=== PATIENT | male | born 1995 | race Caucasian/White ===

== ENCOUNTER 2017-01-17 11:02 | Emergency (ER) | payer SELFPAY ==
[~2017-01-17] VITALS: Ht 177.8 cm; Wt 88.0 kg
[~2017-01-17 11:02] MED LIST: AMOX500T PO; MMW SSP; Z.0.NO CURRENT MEDS
[2017-01-17 11:05] VITALS: BP 146/72; PULSE 99; RESP 14; TEMP 98.6; O2SAT 100
[2017-01-17 11:12] VITALS: BP 146/72; PULSE 96; RESP 14; O2SAT 100
[2017-01-17] MEDS ORDERED: SODIUM CHLORIDE 0.9% FLUSH 10 ML FLUSH IVF PRN (12:00)
[2017-01-17] MEDS ORDERED: SODIUM CHLOR 0.9% 1000 ML INJ 1,000 ML IV ONE (12:00)
[2017-01-17 12:25] VITALS: O2SAT 100
--- NOTE | 2017-01-17 12:27 | PD ---
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 Father states that he noted that the patient became cyanotic and he started CPR on scene. In the ER, patient is completely awake and oriented. He does not remember episode. He states he has been feeling dizzy and not feeling well before the episode. He denies any vomiting, fevers, or any other issues. He denies any previous history of seizures. Modifying Factors: None Associated Signs & Symptoms: Syncopal episode Risk Factors: None PFSH Past Medical History Medical History: Denies Significant Hx Diabetes: No Diminished Hearing: No Immunizations Current: Yes Social History Alcohol Use: No Tobacco Use: No Substance Use: No Allergies-Medications (Allergen,Severity, Reaction): Coded Allergies: No Known Allergies (Verified , 01/17/17) Reported Meds & Prescriptions Reported Meds & Active Scripts Active No Active Prescriptions or Reported Medications Review of Systems Except as stated in HPI: all other systems reviewed are Neg Physical Exam Narrative GENERAL: Well-developed young white male patient currently in mild distress. Awake and oriented 3. SKIN: Focused skin assessment warm/dry. HEAD: Atraumatic. Normocephalic. EYES: Pupils equal and round. No scleral icterus. No injection or drainage. ENT: No nasal bleeding or discharge. Mucous membranes pink and moist. NECK: Trachea midline. No JVD. CARDIOVASCULAR: Regular rate and rhythm. No murmur appreciated. RESPIRATORY: No accessory muscle use. Clear to auscultation. Breath sounds equal bilaterally. GASTROINTESTINAL: Abdomen soft, non-tender, nondistended. Hepatic and splenic margins not palpable. MUSCULOSKELETAL: No obvious deformities. No clubbing. No cyanosis. No edema. NEUROLOGICAL: Awake and alert. No obvious cranial nerve deficits. Motor grossly within normal limits. Normal speech. PSYCHIATRIC: Appropriate mood and affect; insight and judgment normal. Data Data Last Documented VS Vital Signs Date Time Temp Pulse Resp B/P Pulse Ox O2 Delivery O2 Flow Rate FiO2 01/17/17 12:25 100 Nasal Cannula 2 01/17/17 11:12 96 14 01/17/17 11:05 98.6 Orders Complete Blood Count With Diff (01/17/17 11:51) Drug Screen, Random Urine (01/17/17 11:51) Electrocardiogram (01/17/17 ) Blood Glucose (01/17/17 11:51) Ecg Monitoring (01/17/17 11:51) Iv Access Insert/Monitor (01/17/17 11:51) Oximetry (01/17/17 11:51) Comprehensive Metabolic Panel (01/17/17 11:51) Sodium Chloride 0.9% Flush (Ns Flush) (01/17/17 12:00) Sodium Chlor 0.9% 1000 Ml Inj (Ns 1000 M (01/17/17 12:00) Potassium, Serum (K) (01/17/17 13:48) Chest, Single Ap (01/17/17 13:49) Ct Brain W/O Iv Contrast(Rout) (01/17/17 13:49) Labs Laboratory Tests Test 01/17/17 01/17/17 01/17/17:17 12:00 13:40 White Blood Count 7.8 TH/MM3 Red Blood Count 4.88 MIL/MM3 Hemoglobin 14.6 GM/DL Hematocrit 42.1 % Mean Corpuscular Volume 86.2 FL Mean Corpuscular Hemoglobin 30.0 PG Mean Corpuscular Hemoglobin 34.8 % Concent Red Cell Distribution Width 12.7 % Platelet Count 238 TH/MM3 Mean Platelet Volume 9.6 FL Neutrophils (%) (Auto) 44.9 % Lymphocytes (%) (Auto) 37.1 % Monocytes (%) (Auto) 8.8 % Eosinophils (%) (Auto) 8.3 % Basophils (%) (Auto) 0.9 % Neutrophils # (Auto) 3.5 TH/MM3 Lymphocytes # (Auto) 2.9 TH/MM3 Monocytes # (Auto) 0.7 TH/MM3 Eosinophils # (Auto) 0.6 TH/MM3 Basophils # (Auto) 0.1 TH/MM3 CBC Comment DIFF FINAL Differential Comment Sodium Level 142 MEQ/L Potassium Level 3.6 MEQ/L 3.9 MEQ/L Chloride Level 109 MEQ/L Carbon Dioxide Level 25.0 MEQ/L Anion Gap 8 MEQ/L Blood Urea Nitrogen 15 MG/DL Creatinine 1.10 MG/DL Estimat Glomerular Filtration 83 ML/MIN Rate Random Glucose 71 MG/DL Calcium Level 8.3 MG/DL Total Bilirubin 0.5 MG/DL Aspartate Amino Transf 28 U/L (AST/SGOT) Alanine Aminotransferase 28 U/L (ALT/SGPT) Alkaline Phosphatase 59 U/L Total Protein 6.6 GM/DL Albumin 3.6 GM/DL Urine Opiates Screen NEG Urine Barbiturates Screen NEG Urine Amphetamines Screen NEG Urine Benzodiazepines Screen NEG Urine Cocaine Screen NEG Urine Cannabinoids Screen NEG MDM Medical Decision Making Medical Screen Exam Complete: Yes Emergency Medical Condition: Yes Medical Record Reviewed: Yes Interpretation(s) EKG shows NSR, no ST elevation or depression, and no arrhythmias. No significant T-wave inversions. Laboratory Tests Test 01/17/17 11:17 Monocytes (%) (Auto) 8.8 % (0.0-8.0) Eosinophils (%) (Auto) 8.3 % (0.0-4.0) Eosinophils # (Auto) 0.6 TH/MM3 (0-0.4) Chloride Level 109 MEQ/L (98-107) Estimat Glomerular Filtration 83 ML/MIN (>89) Rate Random Glucose 71 MG/DL (74-106) Calcium Level 8.3 MG/DL (8.5-10.1) Last [address] 01/17/17 1349 Signed Impressions: Service Date/Time: Sunday, January 17, 2017 14:23 - CONCLUSION: Negative examination. Zeus Greer MD Differential Diagnosis Syncopedehydration versus metabolic issues versus dysrhythmias versus heat related syncope versus vasovagal Narrative Course EKG did not show any significant dysrhythmias. Lab work shows no significant metabolic issues. Vital signs are stable in the ER. IV fluids was given in the ER. CT of the brain is negative. Vital signs are stable in the ER and patient feels better after given IV fluids. At this point, it appears that he may be heat related syncope. However, I cannot rule out underlying cardiac dysrhythmias or that this was not a new onset of seizure. At this point, I have discussed the findings with the family and possible underlying cardiac issues not further evaluated in the ER, and have offered to admit the patient as an observation for syncope, possible seizure. However, family and patient is declining at this point stating that he is feeling fine and they do suspect that it is heat related. Symptoms are consistent with a heat related syncope but at this point, other underlying cardiac issues or new onset seizures cannot be ruled out since this was not witnessed by medical personnel. He should return for any further episodes. He should drink plenty of fluids and stay. Meanwhile. Follow-up with primary care physician. Return for new issues as needed. The plan has discussed with him and wrist have been discussed with him and he states understanding. Diagnosis Primary Impression: Heat syncope Scripts No Active Prescriptions or Reported Meds Disposition: 01 DISCHARGE HOME Condition: Stable Verna James MD Jan 17, 2017 12:27
[2017-01-17 12:59] LABS: AUTOMATED NEUTROPHIL # 3.5 TH/MM3 (1.8-7.7); BASOPHIL # 0.1 TH/MM3 (0-0.2); BASOPHIL % 0.9 % (0.0-2.0); EOSINOPHIL # 0.6 TH/MM3 (0-0.4); EOSINOPHIL % 8.3 % (0.0-4.0); HEMATOCRIT 42.1 % (39.0-51.0); HEMO FLAGS DIFF FINAL; LYMPH % 37.1 % (9.0-44.0); LYMPHOCYTE # 2.9 TH/MM3 (1.0-4.8); MEAN CELL VOLUME 86.2 FL (80.0-100.0); MEAN CORPUSCULAR HGB CONC 34.8 % (32.0-36.0); MONO % 8.8 % (0.0-8.0); NEUT % 44.9 % (16.0-70.0); PLATELET COUNT 238 TH/MM3 (150-450); RED BLOOD COUNT 4.88 MIL/MM3 (4.50-5.90); RED CELL DISTRIBUTION WIDTH 12.7 % (11.6-17.2); WHITE BLOOD COUNT 7.8 TH/MM3 (4.0-11.0)
[2017-01-17 13:09] LABS: ALKALINE PHOSPHATASE 59 U/L (45-117); ALT (GPT) 28 U/L (12-78); ANION GAP 8 MEQ/L (5-15); AST (GOT) 28 U/L (15-37); BLOOD UREA NITROGEN 15 MG/DL (7-18); CHLORIDE 109 MEQ/L (98-107); GLOMERULAR FILTRATION RATE 83 ML/MIN (>89); SODIUM (NA) 142 MEQ/L (136-145); TOTAL BILIRUBIN ADULT 0.5 MG/DL (0.2-1.0)
[2017-01-17 13:40] LABS: POTASSIUM 3.6 MEQ/L (3.5-5.1)
--- NOTE | 2017-01-17 14:37 | RADRPT ---
EXAM DATE/TIME: 01/17/2017 14:23 [facility] COMPARISON: No previous studies available for comparison. INDICATIONS : Injury to posterior head, seizure today. RADIATION DOSE: 56.35 CTDIvol (mGy) MEDICAL HISTORY : None SURGICAL HISTORY : None. ENCOUNTER: Initial ACUITY: 1 day PAIN SCALE: 2/10 LOCATION: Bilateral cranial posterior. TECHNIQUE: Multiple contiguous axial images were obtained of the head. Using automated exposure control and adj ustment of the mA and/or kV according to patient size, radiation dose was kept as low as reasonably a chievable to obtain optimal diagnostic quality images. DICOM format image data is available electro nically for review and comparison. FINDINGS: CEREBRUM: The ventricles are normal for age. No evidence of midline shift, mass lesion, hemorrhage or acute in farction. No extra-axial fluid collections are seen. POSTERIOR FOSSA: The cerebellum and brainstem are intact. The 4th ventricle is midline. The cerebellopontine angle i s unremarkable. EXTRACRANIAL: The visualized portion of the orbits is intact. SKULL: The calvaria is intact. No evidence of skull fracture. CONCLUSION: Negative examination. Zeus Greer MD on January 17, 2017 at 14:33 Board Certified Radiologist. This report was verified electronically.
--- NOTE | 2017-01-17 15:15 | RADRPT ---
EXAM DATE/TIME: 01/17/2017 13:57 [facility] COMPARISON: No previous studies available for comparison. INDICATIONS : Syncope and chest pain this morning. MEDICAL HISTORY : None. SURGICAL HISTORY : None. ENCOUNTER: Initial ACUITY: 1 day PAIN SCORE: 4/10 LOCATION: Bilateral chest FINDINGS: A single view of the chest demonstrates the lungs to be symmetrically aerated without evidence of mas s, infiltrate or effusion. The cardiomediastinal contours are unremarkable. Osseous structures are intact. CONCLUSION: 1. No acute cardiopulmonary findings. Shakir Ferguson MD on January 17, 2017 at 15:12 Board Certified Radiologist. This report was verified electronically.
--- NOTE | 2017-01-18 09:21 | EKG ---
Date Performed: 01/17/2017 Time Performed: 13:04:38 PTAGE: 21 years EKG: Sinus rhythm BORDERLINE RIGHT AXIS DEVIATION INCOMPLETE RIGHT BUNDLE BRANCH BLOCK BORDERLINE ECG NO PREVIOUS TRACING DOCTOR: Jorge Gordillo Interpretating Date/Time 01/18/2017 09:08:36
== END 2017-01-17 15:08 | disposition home or self-care (01) ==
LOC: NEPE 11:02
DX: T67.1XXA Heat syncope, initial encounter (principal)
CPT/HCPCS: 70450; 71010; 80053; 80307; 84132; 85025; 93005; 96360; 99285; J7030